=== PATIENT | female | born 1980 | race Caucasian/White ===

== ENCOUNTER 2016-07-14 00:05 | Emergency (ER) | payer OTHER, MEDICAID ==
[2016-07-14 00:12] VITALS: BP 143/56; PULSE 70; RESP 18; TEMP 98.4; O2SAT 96
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
== END 2016-07-14 00:43 | disposition home or self-care (01) ==
DX: S16.1XXA Strain of muscle, fascia and tendon at neck level, initial encounter (principal); F17.200 Nicotine dependence, unspecified, uncomplicated; V40.5XXA Car driver injured in collision with pedestrian or animal in traffic accident, initial encounter; Y92.410 Unspecified street and highway as the place of occurrence of the external cause; Y99.8 Other external cause status; Y93.89 Activity, other specified

== ENCOUNTER 2016-10-21 10:29 | Emergency (ER) | payer MEDICAID, OTHER ==
[2016-10-21 10:36] VITALS: BP 109/58; PULSE 62; RESP 16; TEMP 99; O2SAT 96
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
== END 2016-10-21 11:39 | disposition home or self-care (01) ==
DX: M79.81 Nontraumatic hematoma of soft tissue (principal); F17.200 Nicotine dependence, unspecified, uncomplicated; Z77.120 Contact with and (suspected) exposure to mold (toxic)
CPT/HCPCS: 86618-90